=== PATIENT | male | born 1980 | race Caucasian/White ===

== ENCOUNTER 2021-03-12 17:58 | Emergency (ER) | payer BC ==
[~2021-03-12] VITALS: Ht 175.3 cm; Wt 70.3 kg
[2021-03-12 18:51] VITALS: BP_SYST 152
--- NOTE | 2021-03-12 19:40 | NUR ---
Patient to ER bed 2 to gown for evaluation. Side rails up.
--- NOTE | 2021-03-12 19:43 | NUR ---
PATIENT AAOX4 AND AMBUALTORY C/O NAUSEA AND VOMITING X50 TIMES X 2 DAYS. PER PATIENT HE RECENTLY HAD HIS FATHER PASS AND HAS BEEN BINGE DRINKING. LAST DRINK WAS YESTERDAY. PER PATIENT HE STATES THAT HE NO LONGER HAS ANY MORE STOMACH CONTENTS COME OUT. VSS. DENIES ANY CHEST PAIN OR ABDOMINAL PAIN. AMBULATED TO RESTROOM STEADY GAIT.
--- NOTE | 2021-03-12 19:50 | NUR ---
URINE SPECIMEN COLLECTED AND SENT TO LAB FOR ANALYSIS.
--- NOTE | 2021-03-12 20:31 | NUR ---
DR. SUAREZ AT BEDSIDE FOR EVALUATION.
[2021-03-12] MEDS ORDERED: FOLIC ACID 5 MG/ML VIAL IV ONE (20:45)
[2021-03-12] MEDS ORDERED: chlordiazePOXIDE HCL 25 MG CAPSULE PO ONE (20:45)
[2021-03-12] MEDS ORDERED: THIAMINE HCL 100 MG in NS 50 ML IV ONE (20:45)
[2021-03-12] MEDS ORDERED: NACL 0.9% 1,000 ML IV ONE (20:45)
[2021-03-12] MEDS ORDERED: LORazepam 2 MG/ML VIAL IVP ONE (20:45)
[2021-03-12] MEDS ORDERED: ONDANSETRON HCL 4 MG/2 ML VIAL IVP ONE (20:45)
--- NOTE | 2021-03-12 20:50 | NUR ---
# 20 gauge angiocath placed to RIGHT AC. Use of asceptic technique. Opsite placed over site. Blood return noted. Blood for lab drawn from site. Flushed with 10 cc of normal saline. No evidence of infiltration noted. Patient tolerated well.
--- NOTE | 2021-03-12 20:55 | NUR ---
PORTABLE XRAY DONE AT BEDSIDE.
[2021-03-12 21:05] LABS: BASOPHILS # (AUTO) 0.1 K/uL (0.0-0.2); BASOPHILS % (AUTO) 0.5 % (0.0-2.0); HEMATOCRIT 41.1 % (36-54); HEMOGLOBIN 14.5 g/dL (14.0-18.0); LYMPHOCYTES # (AUTO) 0.6 K/uL (1.0-5.5); LYMPHOCYTES % (AUTO) 5.7 % (20.5-51.5); MEAN CORPUSCULAR HEMOGLOBIN 30 pg (27-31); MEAN CORPUSCULAR HGB CONC 35 % (32-36); MEAN CORPUSCULAR VOLUME 86 fL (79.0-98.0); MONOCYTES # (AUTO) 0.3 K/uL (0.0-1.0); MONOCYTES % (AUTO) 2.7 % (1.7-9.3); NEUTROPHILS # (AUTO) 10.2 K/uL (1.8-7.7); NEUTROPHILS % (AUTO) 91.1 % (40.0-70.0); PLATELET COUNT (AUTO) 239 K/uL (130-430); RED BLOOD CELL COUNT(AUTO) 4.76 MIL/uL (4.2-6.2); RED CELL DISTRIBUTION WIDTH 13.7 % (9.0-15.0); WHITE BLOOD COUNT (AUTO) 11.2 K/uL (4.8-10.8)
[2021-03-12] MEDS ORDERED: THIAMINE HCL 100 MG/ML VIAL ONE (21:05)
--- NOTE | 2021-03-12 21:16 | NUR ---
MEDICATION ADMINISTERED ORDERED. PT TOLERATING WELL.
[2021-03-12 21:24] LABS: CALCIUM 9.2 mg/dL (8.4-11.0); CREATININE 1.17 mg/dL (0.55-1.30); POTASSIUM 3.9 mmol/L (3.5-5.1)
[2021-03-12 21:25] LABS: BILIRUBIN,URINE 2+ (NEGATIVE); BLOOD, URINE 2+ (NEGATIVE); GLUCOSE,URINE NEGATIVE (NEGATIVE); KETONES,URINE 3+ (NEGATIVE); LEUKOCYTE ESTERASE ,URINE NEGATIVE (NEGATIVE); NITRITE, URINE NEGATIVE (NEGATIVE); PROTEIN URINE 2+ (NEGATIVE); UROBILINOGEN,URINE 0.2 (0.2-1.0)
[2021-03-12 21:26] LABS: CLARITY/URINE SLIGHTLY HAZY (CLEAR); COLOR,URINE AMBER (YELLOW)
[2021-03-12 21:30] LABS: ALBUMIN 4.3 g/dL (3.4-4.8); TOTAL BILIRUBIN 1.3 mg/dL (0.0-1.0)
[2021-03-12 21:41] LABS: BACTERIA,URINE FEW /HPF (None Seen)
[2021-03-12 21:42] LABS: COARSE GRANULAR CASTS,URINE 0-10 /LPF (None Seen); MUCUS,URINE 2+ /LPF (None Seen)
[2021-03-12] MEDS ORDERED: LR 500 ML IV ONE (22:45)
--- NOTE | 2021-03-12 23:00 | NUR ---
GAVE PT TURKEY SANDWICH, JELLO, AND APPLE JUICE. PT TOLERATED WELL. NO EPISODES OF N/V AT THIS TIME.
[2021-03-12] MEDS ORDERED: LIB25 PO (23:03)
[2021-03-13 00:08] VITALS: BP_SYST 152
--- NOTE | 2021-03-13 00:08 | NUR ---
Patient given written and verbal discharge instructions and verbalizes understanding. DR. DANIELA WHITMORE MD discussed with patient the results and treatment provided. Patient in stable condition. ID arm band removed. IV catheter removed intact and dressing applied, no active bleeding. Rx of LIBRIUM given. Patient educated on pain management and to follow up with PMD. Pain Scale 0/10. Opportunity for questions provided and answered. Medication side effect fact sheet provided.
== END 2021-03-13 00:08 | disposition home or self-care (01) ==
LOC: SED 17:58
DX: R11.2 Nausea with vomiting, unspecified (principal); E86.0 Dehydration; F10.239 Alcohol dependence with withdrawal, unspecified; Z79.899 Other long term (current) drug therapy; Y90.9 Presence of alcohol in blood, level not specified
CPT/HCPCS: 36415; 71045; 80053; 81000; 83690; 85025; 96361; 96365; 96375; 99284; J2060; J2405; J3411; J3490; J7030

== ENCOUNTER 2021-05-27 15:19 | Emergency (ER) | payer BC, SELFPAY ==
[~2021-05-27] VITALS: Ht 175.3 cm; Wt 77.1 kg
[~2021-05-27 15:19] MED LIST: LIB25 PO
--- NOTE | 2021-05-27 15:52 | NUR ---
CALLED FOR TRIAGE, PATIENT NOT IN WAITING ROOM
[2021-05-27 16:11] VITALS: BP_SYST 145
--- NOTE | 2021-05-27 16:18 | NUR ---
Patient triaged and placed in waiting room. VSS and patient appears in no acute distress at this time. Accompanied by FRIEND, awaiting available bed, and MD notified of need for MSE.
--- NOTE | 2021-05-27 18:20 | NUR ---
Patient ambulatory to room 6. Awake, alert and oriented x 3. Stated "I'm here for alcohol withdrawals..I just need the meds. I don't need an IV though..beer is different from hard liquor." Awaiting MD evaluation.
--- NOTE | 2021-05-27 18:27 | NUR ---
Patient disconnected from front desk monitor and moved to hallway
--- NOTE | 2021-05-27 18:31 | NUR ---
Report given to Shreya JASSO to assume care of patient
--- NOTE | 2021-05-27 19:10 | NUR ---
REPORT GIVEN TO LOUISA FLORES FOR CONTINUING CARE
--- NOTE | 2021-05-27 19:12 | NUR ---
Edgar anton in ED - 05/27/21 at 1912 by [id number] Report given to Marzena JASSO to assume care of patient
--- NOTE | 2021-05-27 20:05 | NUR ---
PT. anxious,appprhensive,want to leave.[place] cant wait any longer.Wante to leave AMA. informed/spoke with pt.NAD.VSS.Denies any pains or body discomfort.Ok'd to go w/ Rx.Reassurred.
--- NOTE | 2021-05-27 20:15 | NUR ---
ACI given to pt/verbalized advise.D/c'd home ambulatory in stable condition.
[2021-05-27 20:35] VITALS: BP_SYST 130
== END 2021-05-27 20:35 | disposition left against medical advice (07) ==
LOC: SED 15:19
DX: F10.20 Alcohol dependence, uncomplicated (principal); Z76.5 Malingerer [conscious simulation]; Z79.899 Other long term (current) drug therapy; Y90.9 Presence of alcohol in blood, level not specified
CPT/HCPCS: 99281

== ENCOUNTER 2023-02-20 04:40 | Emergency (ER) | payer BC ==
[~2023-02-20] VITALS: Ht 175.3 cm; Wt 72.6 kg
[2023-02-20 04:58] VITALS: BP_SYST 134; PULSE 92; RESP 16; TEMP 98.5; O2SAT 100
[2023-02-20] MEDS ORDERED: DEXAMETHASONE SOD PHOSPHATE 10 MG/ML VIAL PO ONE (05:45)
[2023-02-20] MEDS ORDERED: LIDOCAINE VISCOUS 2%, 15 ML UDC MM ONE (05:45)
[2023-02-20] MEDS ORDERED: ACET325T PO (05:49)
[2023-02-20] MEDS ORDERED: MENT2.7L MM (05:49)
[2023-02-20 06:00] LABS: STREPTOCOCCUS A SCREEN (RAPID) NEGATIVE (NEGATIVE)
[2023-02-20 06:01] LABS: COVID19 ANTIGEN SOFIA FIA NEGATIVE (NEGATIVE)
[2023-02-20 06:02] LABS: INFLUENZA TYPE A Negative (NEGATIVE); INFLUENZA TYPE B NEGATIVE (NEGATIVE)
[2023-02-20 06:06] VITALS: BP_SYST 134; PULSE 92; RESP 16; TEMP 98.5; O2SAT 100
[2023-02-20] MEDS ORDERED: AMMONIA 1 EA TOWELETTE INH ONE (08:30)
== END 2023-02-20 06:08 | disposition home or self-care (01) ==
LOC: SED 04:40
DX: J02.9 Acute pharyngitis, unspecified (principal); R50.9 Fever, unspecified; R09.81 Nasal congestion; F17.200 Nicotine dependence, unspecified, uncomplicated; Z79.899 Other long term (current) drug therapy; Z20.822 Contact with and (suspected) exposure to COVID-19
CPT/HCPCS: 99283; 87426; 86403; 36415; 87081; 87804 ×2; J2001; J1100

== ENCOUNTER 2023-03-08 09:57 | Emergency (ER) | payer BC ==
[~2023-03-08] VITALS: Ht 172.7 cm; Wt 74.8 kg
[~2023-03-08 09:57] MED LIST changes: +ACET325T PO; +MENT2.7L MM
[2023-03-08 10:00] VITALS: BP_SYST 139; PULSE 88; RESP 18; TEMP 97.8; O2SAT 95
[2023-03-08] MEDS ORDERED: VALA500T PO (10:39)
== END 2023-03-08 10:41 | disposition home or self-care (01) ==
LOC: SED 09:57
DX: Z20.2 Contact with and (suspected) exposure to infections with a predominantly sexual mode of transmission (principal); Z79.899 Other long term (current) drug therapy
CPT/HCPCS: 99283

== ENCOUNTER 2023-03-28 10:35 | Emergency (ER) | payer BC ==
[~2023-03-28] VITALS: Ht 172.7 cm; Wt 78.0 kg
[~2023-03-28 10:35] MED LIST changes: +VALA500T PO
[2023-03-28 10:52] VITALS: BP_SYST 126; PULSE 73; RESP 16; TEMP 97.8; O2SAT 100
[2023-03-28] MEDS ORDERED: PSEU30TA36 PO (11:06)
[2023-03-28] MEDS ORDERED: CEPH250C PO (11:07)
[2023-03-28] MEDS ORDERED: IBUP-1971 PO (11:07)
[2023-03-28 11:45] VITALS: BP_SYST 136; PULSE 64; RESP 14; TEMP 98.7; O2SAT 99
== END 2023-03-28 11:45 | disposition home or self-care (01) ==
LOC: SED 10:35
DX: J32.9 Chronic sinusitis, unspecified (principal); R09.89 Other specified symptoms and signs involving the circulatory and respiratory systems; Z79.899 Other long term (current) drug therapy
CPT/HCPCS: 36415; 99283

== ENCOUNTER 2023-04-16 08:38 | Emergency (ER) | payer BC ==
[~2023-04-16] VITALS: Ht 175.3 cm; Wt 78.0 kg
[~2023-04-16 08:38] MED LIST changes: +CEPH250C PO; +IBUP-1971 PO; +PSEU30TA36 PO
[2023-04-16 09:28] VITALS: BP_SYST 129; PULSE 85; RESP 18; TEMP 98.3; O2SAT 98
[2023-04-16] MEDS ORDERED: cefTRIAXone 250 MG VIAL IM ONE (09:30)
[2023-04-16] MEDS ORDERED: AZITHROMYCIN 250 MG TABLET PO ONE (09:30)
[2023-04-16] MEDS ORDERED: EMTR1TAB12 PO (09:49)
[2023-04-16] MEDS ORDERED: RALT400T PO (09:49)
[2023-04-16] MEDS ORDERED: ONDANSETRON 4 MG ODT TAB PO ONE (10:30)
[2023-04-16 11:04] VITALS: BP_SYST 129; PULSE 85; RESP 18; TEMP 98.3; O2SAT 98
[2023-04-17 09:07] LABS: HEPATITIS C VIRUS AB Non Reactive (Non Reactive)
[2023-04-17 15:07] LABS: HEPATITIS A AB, IgM Negative (Negative); HEPATITIS B CORE AB, IgM Negative (Negative); HEPATITIS B SURFACE AG Negative (Negative)
== END 2023-04-16 10:40 | disposition home or self-care (01) ==
LOC: SED 08:38
DX: R36.9 Urethral discharge, unspecified (principal); Z79.899 Other long term (current) drug therapy
CPT/HCPCS: 99283; 86592; 36415; 96372; 80074; 87491; Q0162; J0696; Q0144